=== PATIENT | male | born 1950 | race Caucasian/White ===

== ENCOUNTER → 2017-01-23 | Day surgery (SDC) | payer OTHER ==
[~2017-01-23] VITALS: Ht 167.6 cm; Wt 85.3 kg
[~2017-01-23] MED LIST: ALLOPURINOL100 MG PO; ASPIRIN325 M2 PO; ATENOLOL25 M1 PO; CLOPIDOGREL75 MG PO; ENDOCET 325 MG-1 TA1 PO; FLEXERIL10 MG PO; LEVOTHYROXIN0.175 MG PO; OMEPRAZOLE20 MG PO; PREDNISONE 1 MG1 MG PO; PREDNISONE5 MG PO; SIMVASTATIN40 MG PO; ZOCOR
--- NOTE | 2017-01-23 10:01 | Operative Report ---
Operative/Inv Procedure Report Surgery Date: 01/23/17 Name of Procedure: #1. Left shoulder arthroscopic rotator cuff repair #2. Left shoulder biceps tenotomy and extensive glenoid humeral debridement #3. Left shoulder arthroscopic distal clavicle excision #4. Left shoulder subacromial decompression and acromioplasty Pre-Operative Diagnosis: Left shoulder rotator cuff tear and biceps tendon tear Left shoulder acromioclavicular joint arthritis Post-Operative Diagnosis: Same Estimated Blood Loss: scant Surgeon/Sample Supervisor: OSIEL NOLAN,PATEL Krishna Anesthesia: general endotracheal tube IV Fluids: See anesthesia record Implants: None Drains: None Specimens: None Complications: None Condition: Stable Operative Indication: Patient is a 66-year-old male who was failed conservative treatment for his chronic left shoulder pain. MRI revealed partial tear of subscapularis tendon and tear of the biceps tendon as well as a possible intrasubstance tear of the supraspinatus tendon. He was indicated for surgical arthroscopy. The risks and benefits of procedure were described in detail in the office. Skilled set of hands was necessary provided by physician reference assistant Vahe Krishna weighted with positioning camera placement suture management throughout the case. Operative/Procedure Note Note: Once informed consent was obtained and the correct limb was identified patient brought to operative room placed on table in supine position. After administration of general endotracheal anesthesia patient was placed in a beachchair position for left shoulder arthroscopy. Standard portal was made posteriorly and the scope was introduced into the glenoid humeral joint. Diagnostic arthroscopy was carried out. Biceps tendon had intrasubstance tear. Biceps anchor was intact. Glenoid and humeral head were intact with no evidence of any degenerative changes. Subscapular tendon had a partial thickness tear of the intrasubstance. There is negative drive-through sign. There are no loose bodies in the inferior pouches. Supraspinous tendon had thinning at its attachment site on the bare spot. A anterior portal was made lateral to the coracoid and shaving device was introduced and debridement of synovial tissue was performed and then the biceps tendon was inspected and found to be torn and a decision was made to perform a tenotomy. Using a scissor punch a tenotomy of the biceps tendon was performed without compensation. The tendon repair was retracted out of the joint. Once this was done through the same anterior portal a subscapularis repair was done using a bird's beak suture passer and #2 with recurrent sutures. Some intrasubstance sutures were placed to prevent propagation of the intrasubstance tear. The subscap insertion was intact and moved as a unit with rotation of the shoulder. Attention was then turned to the supraspinous tendon a lateral portal was made and the supraspinous tendon was found to be very thin and was completely torn. The tear was completed with a electrocautery device. We then placed the arthroscope into the subacromial space for repair of the supraspinous tendon. The scope was placed through a posterior lateral portal and the superior surface tear was identified. The bare spot was abraded with the 5.5 ultra cut device. A 4.75 swivel lock anchor was opened and the tighter tape suture was placed through the superficial tendon with a horizontal mattress configuration. The strands of the suture was then placed a single lock anchor and a swivel lock anchor was placed on the lateral aspect of the greater tuberosity after the hole had been tapped with the appropriate taps. This allowed for excellent repair and tensioning of the supraspinous tendon. An extra vertical mattress suture was then placed through the anterior portion supraspinatus as well and cinched down to the swivel lock anchor. The shoulder was taken through a range of motion of the supraspinous tendon moved as a unit. Attention was then turned to the acromial space subacromial space. Acromioplasty was done with a 5.5 ultra cut device. The acromioclavicular joint was inspected and found to be degenerative and a distal clavicle resection of 10 mm of bone off the distal clavicle was removed without complication. The distal clavicle and acromion were coplanar. The shoulder was then irrigated with a scopic sole saline solution and the entrance removed. The portals were closed with 3-0 nylon interrupted sutures and a sling was applied after sterile dressing and then a placed. Patient was awakened taken recovery in stable condition.
== END ==
LOC: STS 03:30
DX: M75.102 Unspecified rotator cuff tear or rupture of left shoulder, not specified as traumatic (principal); M19.012 Primary osteoarthritis, left shoulder; M10.9 Gout, unspecified; I25.10 Atherosclerotic heart disease of native coronary artery without angina pectoris; E03.9 Hypothyroidism, unspecified; E78.5 Hyperlipidemia, unspecified
CPT/HCPCS: J0171; J0690; J1100; J1885; J2250; J2405; J2795

== ENCOUNTER 2018-02-12 11:18 | Emergency (ER) | payer OTHER ==
[~2018-02-12] VITALS: Ht 167.6 cm; Wt 90.7 kg
--- NOTE | 2018-02-12 15:06 | ED SKIN/ALLERGY COMPLAINT ---
History of Present Illness General Chief Complaint: Animal/Insect Bite Stated Complaint: TICK BITE TO LEFT GROIN "BULLS EYEING?" Source: patient Exam Limitations: no limitations Vital Signs & Intake/Output Vital Signs & Intake/Output Vital Signs Date Time Temp Pulse Resp B/P B/P Pulse O2 O2 Flow FiO2 Mean Ox Delivery Rate 02/12 1135 98.8 83 20 127/69 96 Room Air Allergies Coded Allergies: Poultry (Intermediate, NAUSEA 01/21/17) Reconcile Medications Allopurinol 100 MG TAB 3 TAB PO DAILY gout (Reported) Aspirin (Aspirin*) 325 MG TABLET 1 TAB PO DAILY HX PTCA (Reported) Atenolol 25 MG TABLET 1 TAB PO DAILY HTN (Reported) CLOPIDOGREL BISULFATE (Clopidogrel) 75 MG TAB 1 TAB PO DAILY heart attack ( Reported) Doxycycline Hyclate 100 MG CAPSULE 1 CAP PO BID cellulitis Levothyroxine Sodium 0.175 MG TAB 1 TAB PO D thyroid (Reported) Omeprazole 20 MG ECC 1 TAB PO DAILY acid reflux (Reported) Simvastatin 40 MG TAB 1 TAB PO QPM CHOLESTEROL (Reported) [ZOCOR] CHOLESTEROL (Reported) Triage Note: PT STATES HE HAD A TICK BITE, PULLED THE TICK OUT AND PT STATES NOW IT LOOKS LIKE A BULLS EYE. PT STATES BITE IS NEAR GROIN, UNABLE TO VISUALIZE IN TRIAGE Triage Nurses Notes Reviewed? yes Onset: Gradual Duration: day(s): (4) Timing: no prior history Severity: mild Severity Numbers: 4 Location: extremities Possible Factors: tick HPI: Patient is a 67-year-old male presented to the emergency department to complaint of tick bite to left thigh that happened 4-5 days ago. He reports he was outside sitting on a log and no sick contacts A. Patient denies any fevers or chills. No nausea or vomiting. Denies body aches or fatigue. No dizziness. No chest pain or palpitations. Patient reports that he pulled a tick off but noticed increasing redness around the tick bite. Was concerned about Lyme disease. Has not been taking anything or doing anything help with symptoms. Past History Travel History Traveled to [place] past 21 day No Medical History Any Pertinent Medical History? see below for history Cardiovascular: hyperlipidemia, [place] (PLAVIX) Musculoskeletal: gout, CHRONIC BACK PAIN Endocrine: hypothyroidism Cancer(s): thyroid cancer History of MRSA: No History of VRE: No History of CDIFF: No Surgical History Surgical History: non-contributory Psychosocial History Who do you live with Family Services at Home None What is your primary language Uzbek Tobacco Use: Never used ETOH Use: occasional use Illicit Drug Use: denies illicit drug use Family History Hx Contributory? No Review of Systems Review of Systems Constitutional: Reports: no symptoms. Comments Review of systems: See HPI, All other systems negative. Constitutional, no chills fever or weight loss HEENT: No visual changes no sore throat no congestion Cardiovascular: No chest pain ,palpitation , Skin, no jaundice Respiratory: No dyspnea cough sputum or hemoptysis GI: No nausea no vomiting Muscle skeletal: no back pain, no neck pain, Neurologic: No numbness no confusion Psych: No stress anxiety Immunology: No splenectomy or history of AIDS Physical Exam Physical Exam General Appearance: well developed/nourished, no apparent distress, alert, awake , comfortable Comments: Well-developed well-nourished person in no acute distress HEENT: Atraumatic, normocephalic Neck: Normal inspection Respiratory: No respiratory distress. Extremity: No edema, Neuro: Alert oriented x3, motor sensory normal Skin: Scab lesion approximately 1 cm in size noted over the left inner thigh with mild surrounding erythema approximately 2-3 cm in size. Mildly warm. No fluctuance. No pain to palpation over this area. No signs of remains of the tick in the wound. Psych: Mood and affect is normal, memory and judgment is normal. Progress Differential Diagnosis: cellulitis, abscess, retained body in soft tissue, tick bite Plan of Care: Orders Procedure Date/time Status LYME TITRE 02/12 1226 Active Laboratory Tests 02/12/18 1252: Lyme Disease Antibody Pending Lyme titer was ordered. Patient is asymptomatic. Likely too early to become positive in the blood work. Patient started on doxycycline. He'll follow-up with his primary care physician for repeat blood work and for 6 weeks if the initial blood test is negative. Patient is nontoxic. Discussed with and he agrees with plan. Departure Departure Time of Disposition: 1513 Disposition: HOME OR SELF CARE Condition: Stable Clinical Impression Primary Impression: Tick bite Secondary Impressions: Cellulitis Qualifiers: Site of cellulitis: extremity Site of cellulitis of extremity: lower extremity Laterality: left Qualified Code: L03.116 - Cellulitis of left lower limb Referrals: Mishel NOLAN,Vamshi Laura (PCP/Family) Additional Instructions: Follow-up with your primary care physician in the next 4-6 weeks for repeat blood work if the initial blood work is negative. Take doxycycline as prescribed. Apply warm compresses to affected area. Return for worsening symptoms or concerns. Departure Forms: Customer Survey General Discharge Information Prescriptions: Current Visit Scripts Doxycycline Hyclate 1 CAP PO BID #20 CAP
[2018-02-12] MEDS ORDERED: DOXYCYCLINE HY100 M2 PO (15:15)
[2018-02-12 15:26] VITALS: BP 150/73
== END 2018-02-12 15:24 ==
LOC: ERH 11:18
DX: S70.362A Insect bite (nonvenomous), left thigh, initial encounter (principal); L03.116 Cellulitis of left lower limb; W57.XXXA Bitten or stung by nonvenomous insect and other nonvenomous arthropods, initial encounter; Y92.9 Unspecified place or not applicable; Y93.9 Activity, unspecified
CPT/HCPCS: 86618